=== PATIENT | male | born 1950 | race African-American/Black ===

== ENCOUNTER 2017-12-28 17:21 | Inpatient (IN) | payer MEDICARE ==
[2017-12-28 17:22] VITALS: BP 137/82; PULSE 86; RESP 17; TEMP 98.4; O2SAT 95
--- NOTE | 2017-12-28 18:43 | RADRPT ---
EXAM DATE/TIME: 12/28/2017 18:13 [place] COMPARISON: No previous studies available for comparison. INDICATIONS : Chest pain. Patients pacemaker went off. MEDICAL HISTORY : Hypertension. Diabetes mellitus type II. SURGICAL HISTORY : Pacemaker. Valve replacement. ENCOUNTER: Initial ACUITY: 3 weeks PAIN SCORE: 0/10 LOCATION: Bilateral chest FINDINGS: PA and lateral views of the chest demonstrate the lungs to be symmetrically aerated without evidence of mass, infiltrate or effusion. The heart size is diffusely enlarged. There is evidence of previous cardiothoracic surgery. There is a pacemaker overlying the left chest. The bony structures are gross ly intact. CONCLUSION: No acute disease. Compensated cardiomegaly Panchito Henderson MD on December 28, 2017 at 18:41 Board Certified Radiologist. This report was verified electronically.
[2017-12-28 19:04] LABS: AUTOMATED NEUTROPHIL # 4.8 TH/MM3 (1.8-7.7); BASOPHIL % 0.6 % (0.0-2.0); EOSINOPHIL # 0.1 TH/MM3 (0-0.4); EOSINOPHIL % 0.9 % (0.0-4.0); HEMATOCRIT 45.2 % (39.0-51.0); HEMOGLOBIN 15.7 GM/DL (13.0-17.0); LYMPH % 19.5 % (9.0-44.0); LYMPHOCYTE # 1.4 TH/MM3 (1.0-4.8); MEAN CELL VOLUME 95.9 FL (80.0-100.0); MEAN CORPUSCULAR HEMOGLOBIN 33.2 PG (27.0-34.0); MEAN CORPUSCULAR HGB CONC 34.7 % (32.0-36.0); MEAN PLATELET VOLUME 9.2 FL (7.0-11.0); MONO % 12.6 % (0.0-8.0); MONOCYTE # 0.9 TH/MM3 (0-0.9); NEUT % 66.4 % (16.0-70.0); PLATELET COUNT 152 TH/MM3 (150-450); RED BLOOD COUNT 4.72 MIL/MM3 (4.50-5.90); RED CELL DISTRIBUTION WIDTH 14.8 % (11.6-17.2); WHITE BLOOD COUNT 7.2 TH/MM3 (4.0-11.0)
[2017-12-28 19:10] VITALS: BP 125/83; PULSE 105; RESP 18; O2SAT 99
--- NOTE | 2017-12-28 19:12 | PD ---
HPI Chief Complaint: Commercial Census Taker Problem Time Seen by Provider: 19:09 Travel History International Travel<30 days: No Contact w/Intl Traveler<30days: No Traveled to known affect area: No History of Present Illness HPI The patient is a 67 year old male who presents to the [facility] emergency department with a history of reportedly having his AICD fire earlier today. The patient reports that he was out playing golf and had just done a great shot on the golf course. The patient reports that it was at approximately 3 PM that the AICD fired. He reports that he felt like he was kicked in the chest. He denies having any chest pain, chest pressure, palpitations prior to this. He denies having any shortness of breath. He denies having any chest pain or chest pressure currently. He denies having any shortness of breath currently. The patient's recent history is complicated by being diagnosed with bronchitis. He is on the last 3 days of a course of Augmentin. The patient reports that his cough and congestion have greatly improved on the antibiotic. He reports that his primary care physician is Dr. Atwood in [place]. On review of systems, the patient denies having any known recent fevers, neck pain, chest pain, shortness of breath, abdominal pain, vomiting, diarrhea, urinary symptoms , or neurologic symptoms. The patient reports that he has been moving his bowels regularly. [facility] Past Medical History Narrative Medical The patient's past medical history is significant for having a mitral valve replacement done in 1993 with an artificial valve, chronically anticoagulated on Coumadin, history of atrial fibrillation status post AICD placement 8 years ago. The patient reports that he was recently told that his battery was getting low and would have to be replaced when the alarm goes off. The patient has a history of diabetes. The patient's recent blood sugars have been ranging from 110-150. Patient has a history of hypertension. The patient's last stress test was done approximately 2 years ago. Cardiovascular Problems: Yes Diabetes: Yes Past Surgical History Narrative Surgical The patient's past surgical history is significant for AICD placement, mitral valve replacement. Social History Alcohol Use: No Tobacco Use: No Substance Use: No Allergies-Medications (Allergen,Severity, Reaction): Coded Allergies: amiodarone (Verified Allergy, Unknown, 12/28/17) Reported Meds & Prescriptions Reported Meds & Active Scripts Active Reported Augmentin (Amoxicillin-Clavulanate) 875-125 Mg Tab 1 Tab PO BID Furosemide 40 Mg Tab 40 Mg PO BID Warfarin 7.5 Mg Tab 7.5 Mg PO DAILY Tradjenta (Linagliptin) 5 Mg Tab 5 Mg PO DAILY Metoprolol Succinate ER 24 HR (Metoprolol Succinate) 50 Mg Tab 50 Mg PO DAILY Digitek (Digoxin) 125 Mcg Tab 0.125 Mg PO DAILY Allopurinol 100 Mg Tab 100 Mg PO DAILY Review of Systems Except as stated in HPI: all other systems reviewed are Neg General / Constitutional: No: Fever Eyes: No: Visual changes HENT: Positive: Congestion, No: Headaches Cardiovascular: No: Chest Pain or Discomfort, Dyspnea on exertion Respiratory: Positive: Cough, No: Shortness of Breath Gastrointestinal: No: Nausea, Vomiting, Diarrhea, Abdominal Pain Genitourinary: No: Dysuria Musculoskeletal: No: Pain Skin: No Rash Neurologic: No: Weakness, Focal Abnormalities, Change in Mentation, Slurred Speech, Sensory Disturbance Psychiatric: No: Depression Endocrine: No: Polydipsia Hematologic/Lymphatic: No: Easy Bruising Physical Exam Narrative General: The patient is a well-developed well-nourished male in no acute distress. Head and Neck exam: Head is normocephalic atraumatic. Eyes: EOMI, pupils are equal round and reactive to light. Nose: Midline septum with pink mucous membranes Mouth: Dentition unremarkable. Moist mucus membranes. Posterior oropharynx is not erythematous. No tonsillar hypertrophy. Uvula midline. Airway patent. Neck: No palpable lymphadenopathy. No nuchal rigidity. No thyromegaly. Cardiovascular: Irregularly irregular with a rate that ranges from the 90s to low 100s. The patient on the monitor is noted to be in atrial fibrillation. The patient has an intermittent pulse deficit to his extremity palpated during simultaneous auscultation of his heart. The patient has an audible click consistent with his mechanical valve. No gallops or rubs. Lungs: Clear to auscultation bilaterally. No wheezes, rhonchi, or rales. Abdomen: Soft, without tenderness to palpation in all 4 quadrants of the abdomen. No guarding, rebound, or rigidity. Normal bowel sounds are audible. No tenderness on palpation of McBurney's point. Extremities: No clubbing, cyanosis, or edema. 2+ pulses in all 4 extremities. No calf tenderness on palpation. Back: No spinous process tenderness to palpation. No costovertebral angle tenderness to palpation. Neurologic Exam: Grossly nonfocal. Skin Exam: No rash noted. Intact skin that is warm and dry. Data Data Last Documented VS Vital Signs Date Time Temp Pulse Resp B/P (MAP) Pulse Ox O2 Delivery O2 Flow Rate FiO2 12/28/17 19:10 105 18 125/83 (97) 99 12/28/17 17:22 98.4 Orders Orders Electrocardiogram (12/28/17 17:46) Basic Metabolic Panel (Bmp) (12/28/17 17:46) Ckmb (Isoenzyme) Profile (12/28/17 17:46) Complete Blood Count With Diff (12/28/17 17:46) Magnesium (Mg) (12/28/17 17:46) Prothrombin Time / Inr (Pt) (12/28/17 17:46) Act Partial Throm Time (Ptt) (12/28/17 17:46) Troponin I (12/28/17 17:46) Chest, Pa & Lat (12/28/17 17:46) CKMB (12/28/17 18:35) CKMB% (12/28/17 18:35) Digoxin (12/28/17 19:28) Aspirin Chew (Aspirin Chew) (12/28/17 19:30) Nitroglycerin 2% Oint (Nitroglycerin 2% (12/28/17 19:30) Diltiazem Inj (Cardizem Inj) (12/28/17 19:30) Admit Order (Ed Use Only) (12/28/17 21:16) Consult Cardiology (12/28/17 ) Labs Laboratory Tests Test 12/28/17 17:45 12/28/17 18:35 Digoxin Level 0.9 NG/ML White Blood Count 7.2 TH/MM3 Red Blood Count 4.72 MIL/MM3 Hemoglobin 15.7 GM/DL Hematocrit 45.2 % Mean Corpuscular Volume 95.9 FL Mean Corpuscular Hemoglobin 33.2 PG Mean Corpuscular Hemoglobin Concent 34.7 % Red Cell Distribution Width 14.8 % Platelet Count 152 TH/MM3 Mean Platelet Volume 9.2 FL Neutrophils (%) (Auto) 66.4 % Lymphocytes (%) (Auto) 19.5 % Monocytes (%) (Auto) 12.6 % Eosinophils (%) (Auto) 0.9 % Basophils (%) (Auto) 0.6 % Neutrophils # (Auto) 4.8 TH/MM3 Lymphocytes # (Auto) 1.4 TH/MM3 Monocytes # (Auto) 0.9 TH/MM3 Eosinophils # (Auto) 0.1 TH/MM3 Basophils # (Auto) 0.0 TH/MM3 CBC Comment DIFF FINAL Differential Comment Prothrombin Time 28.9 SEC Prothromb Time International Ratio 2.9 RATIO Activated Partial Thromboplast Time 36.9 SEC Blood Urea Nitrogen 25 MG/DL Creatinine 1.91 MG/DL Random Glucose 121 MG/DL Calcium Level 9.9 MG/DL Magnesium Level 2.1 MG/DL Sodium Level 137 MEQ/L Potassium Level 4.3 MEQ/L Chloride Level 104 MEQ/L Carbon Dioxide Level 24.1 MEQ/L Anion Gap 9 MEQ/L Estimat Glomerular Filtration Rate 35 ML/MIN Total Creatine Kinase 153 U/L Creatine Kinase MB 2.6 NG/ML Troponin I LESS THAN 0.02 NG/ML MDM Medical Decision Making Medical Screen Exam Complete: Yes Emergency Medical Condition: Yes Medical Record Reviewed: Yes Interpretation(s) Last Impressions Chest X-Ray 12/28/17 [id number] Signed Impressions: Service Date/Time: Thursday, December 28, 2017 18:13 - CONCLUSION: No acute disease. Compensated cardiomegaly Panchito Henderosn MD Differential Diagnosis Electrolyte derangements, versus A. fib with RVR causing AICD fire, versus other cardiac arrhythmia, versus acute coronary syndrome triggering cardiac Narrative Course During the course of the patient's emergency department visit, the patient's history, examination, and differential diagnosis were reviewed with the patient. The patient was placed on a school lunch monitor with oximetry and frequent blood pressure monitoring. The patient had IV access obtained and blood work sent for analysis. The patient had an EKG done on arrival that shows A. fib with RVR heart rate of 100, QRS duration is 122 ms with a QTC of 394 ms, moderate intraventricular conduction delay, marked left axis deviation. T waves are inverted in V5, V6, lead I, aVL. No acute ST segment elevation. The patient's pacemaker/AICD will be interrogated. The patient was initially provided aspirin 81 mg p.o. 1, nitroglycerin 1/2 inch of paste to the chest wall. If the patient's heart rhythm is maintained above 100 the patient will be given a dose of Cardizem IV. The patient was administered Cardizem 10 mg IV. The patient's laboratory studies were reviewed and remarkable for a white count of 7.2, hemoglobin 15.7, platelets 152 with monocytes 12.6, basic metabolic profile is remarkable for a BUN of 25, creatinine 1.91 in a patient with no prior records at this facility, therefore it is difficult to assess that this is better or worse than previously, glucose 121, magnesium is 2.1, CPK 153, troponin I less than 0.02, PT 28.9, INR 2.9, PTT 36.9, digoxin level is 0.9 Radiology studies were reviewed and remarkable for chest x-ray that shows no acute disease, compensated cardiomegaly. The pacemaker interrogator reported that the patient had an episode of V. tach that required AICD defibrillation. The defibrillator function well, however the battery is low. I did discuss this with Dr. David Robbins the covering physician for the patient's straw baler, Dr. Rene. On reviewing the patient's record he reports that the patient's battery threshold is low enough that he does need to have the battery replaced. He recommends admission and consultation with , for placement. The patient's results were discussed with the patient, including the plan of care. I explained that further testing and/ or monitoring is indicated based on the patient's history, examination, and/ or laboratory findings. Therefore, I recommended admission for additional evaluation. The patient expressed understanding and was agreeable with this plan. The patient was admitted to the hospital in guarded condition and [facility] Physician Communication Physician Communication The patient's case including history, pertinent physical examination findings, and laboratory studies were discussed with Dr. Renteria. It was agreed that the patient would be admitted to the [facility] service. Diagnosis Primary Impression: Defibrillator discharge Additional Impressions: Renal insufficiency Ventricular tachycardia Admitting Information Admitting Physician Requests: Admit Lucinda Robbins MD Dec 28, 2017 19:12
[2017-12-28 19:14] LABS: BICARBONATE 24.1 MEQ/L (21.0-32.0); BLOOD UREA NITROGEN 25 MG/DL (7-18); CALCIUM 9.9 MG/DL (8.5-10.1); CHLORIDE 104 MEQ/L (98-107); CREATININE 1.91 MG/DL (0.60-1.30); GLOMERULAR FILTRATION RATE 35 ML/MIN (>89); GLUCOSE,RANDOM 121 MG/DL (74-106); MAGNESIUM 2.1 MG/DL (1.5-2.5); SODIUM (NA) 137 MEQ/L (136-145)
[2017-12-28 19:16] LABS: INTERNATIONAL NORMALIZED RATIO 2.9 RATIO; PROTHROMBIN TIME - PATIENT 28.9 SEC (9.8-11.6)
[2017-12-28 19:18] LABS: TROPONIN I LESS THAN 0.02 NG/ML (0.02-0.05)
[2017-12-28] MEDS ORDERED: ALLO100T PO (19:18)
[2017-12-28] MEDS ORDERED: METO1TAB9 PO (19:20)
[2017-12-28] MEDS ORDERED: DIGO1TAB59 PO (19:20)
[2017-12-28] MEDS ORDERED: FURO40TA PO (19:20)
[2017-12-28] MEDS ORDERED: TRAD5TAB PO (19:20)
[2017-12-28] MEDS ORDERED: WARF-21 PO (19:20)
[2017-12-28] MEDS ORDERED: AUGM875T3 PO (19:24)
[2017-12-28] MEDS ORDERED: NITROGLYCERIN 2% OINT 1 GM PACKET TOPICAL ONE (19:30)
[2017-12-28] MEDS ORDERED: DILTIAZEM HCL 25 MG/5 ML VIAL IV ONE (19:30)
[2017-12-28] MEDS ORDERED: ASPIRIN 81 MG CHEW TAB CHEW ONE (19:30)
[2017-12-28 22:01] VITALS: BP 141/97; PULSE 85; RESP 18; O2SAT 98
[2017-12-28] MEDS ORDERED: GLUCAGON 1 MG/ML VIAL OTHER PRN (22:15)
[2017-12-28] MEDS ORDERED: NALOXONE HCL 0.4 MG/ML AMP IV PUSH PRN (22:15)
[2017-12-28] MEDS ORDERED: DEXTROSE 50% IN WATER 50 ML VIAL(D50) IV PUSH PRN (22:15)
[2017-12-28 23:00] VITALS: BP 127/75; PULSE 88; RESP 18; TEMP 98.3; O2SAT 97
[2017-12-29] VITALS (7 sets, daily range): BP systolic 117–142; BP diastolic 72–88; PULSE 70–88; RESP 16; TEMP 97.8–98; O2SAT 96–98
[2017-12-29] MEDS ORDERED: DEXTROSE 50% IN WATER 50 ML VIAL(D50) IV PUSH PRN
[2017-12-29] MEDS ORDERED: TEMAZEPAM 15 MG CAP PO PRN
[2017-12-29] MEDS ORDERED: GLUCAGON 1 MG/ML VIAL OTHER PRN
--- NOTE | 2017-12-29 00:14 | HHI.HP ---
[facility] Primary Care Physician Sunitha Moore MD Admission Diagnosis Vtach s/p AICD fire, low battery on defibrillator Diagnoses: Travel History International Travel<30 Days: No Contact w/Intl Traveler <30 Da: No Traveled to Known Affected Are: No History of Present Illness 67-year-old male with a past medical history significant for atrial fibrillation anticoagulated on Coumadin, diabetes mellitus, hypertension, gout and status post mitral valve replacement presents to the emergency department after his AICD fired. The patient reports he was playing golf when his pacemaker shocked him. He denies any associated chest pain or shortness of breath. Denies any palpitations preceding the event. This pacemaker was interrogated in the emergency department was significant for V. tach that preceded the shock. Patient denies any associated loss of consciousness. The patient's field marketing coordinator is Dr. Rene. He was last seen last month where he was told that his AICD had a low battery. Review of Systems Except as stated in HPI: all other systems reviewed are Neg Past Family Social History Past Medical History Diabetes mellitus Hypertension Gout Atrial fibrillation anticoagulated on warfarin Past Surgical History AICD placement in 2005 Mitral valve replacement in 1993 Reported Medications Reported Meds & Active Scripts Active Reported Augmentin (Amoxicillin-Clavulanate) 875-125 Mg Tab 1 Tab PO BID Furosemide 40 Mg Tab 40 Mg PO BID Warfarin 7.5 Mg Tab 7.5 Mg PO DAILY Tradjenta (Linagliptin) 5 Mg Tab 5 Mg PO DAILY Metoprolol Succinate ER 24 HR (Metoprolol Succinate) 50 Mg Tab 50 Mg PO DAILY Digitek (Digoxin) 125 Mcg Tab 0.125 Mg PO DAILY Allopurinol 100 Mg Tab 100 Mg PO DAILY Allergies: Coded Allergies: amiodarone (Verified Allergy, Unknown, 12/28/17) Family History Both parents with diabetes mellitus Social History Denies tobacco. Occasional alcohol. Denies illicit drugs. Physical Exam Vital Signs Vital Signs Date Time Temp Pulse Resp B/P (MAP) Pulse Ox O2 Delivery O2 Flow Rate FiO2 12/28/17 23:07 12/28/17 22:01 85 18 141/97 (112) 98 Room Air 12/28/17 19:10 105 18 125/83 (97) 99 12/28/17 19:10 100 12/28/17 17:22 98.4 86 17 137/82 (100) 95 Physical Exam GENERAL: Saima male, sitting up in bed, eating SKIN: No rashes, ecchymoses or lesions. Cool and dry. HEAD: Atraumatic. Normocephalic. No temporal or scalp tenderness. EYES: Pupils equal round and reactive. Extraocular motions intact. No scleral icterus. No injection or drainage. ENT: Nose without bleeding, purulent drainage or septal hematoma. Throat without erythema, tonsillar hypertrophy or exudate. Uvula midline. Airway patent. NECK: Trachea midline. No JVD or lymphadenopathy. Supple, nontender, no meningeal signs. CARDIOVASCULAR: Regular rate and rhythm. 3/6 murmur. RESPIRATORY: Clear to auscultation. Breath sounds equal bilaterally. No wheezes , rales, or rhonchi. GASTROINTESTINAL: Abdomen soft, non-tender, nondistended. No hepato-splenomegaly , or palpable masses. No guarding. MUSCULOSKELETAL: Extremities without clubbing, cyanosis, or edema. No joint tenderness, effusion, or edema noted. No calf tenderness. NEUROLOGICAL: Awake and alert. Cranial nerves II through XII intact. Motor and sensory grossly within normal limits. Normal speech. Laboratory Laboratory Tests Test 12/28/17 17:45 12/28/17 18:35 Digoxin Level 0.9 White Blood Count 7.2 Red Blood Count 4.72 Hemoglobin 15.7 Hematocrit 45.2 Mean Corpuscular Volume 95.9 Mean Corpuscular Hemoglobin 33.2 Mean Corpuscular Hemoglobin Concent 34.7 Red Cell Distribution Width 14.8 Platelet Count 152 Mean Platelet Volume 9.2 Neutrophils (%) (Auto) 66.4 Lymphocytes (%) (Auto) 19.5 Monocytes (%) (Auto) 12.6 Eosinophils (%) (Auto) 0.9 Basophils (%) (Auto) 0.6 Neutrophils # (Auto) 4.8 Lymphocytes # (Auto) 1.4 Monocytes # (Auto) 0.9 Eosinophils # (Auto) 0.1 Basophils # (Auto) 0.0 CBC Comment DIFF FINAL Differential Comment Prothrombin Time 28.9 Prothromb Time International Ratio 2.9 Activated Partial Thromboplast Time 36.9 Blood Urea Nitrogen 25 Creatinine 1.91 Random Glucose 121 Calcium Level 9.9 Magnesium Level 2.1 Sodium Level 137 Potassium Level 4.3 Chloride Level 104 Carbon Dioxide Level 24.1 Anion Gap 9 Estimat Glomerular Filtration Rate 35 Total Creatine Kinase 153 Creatine Kinase MB 2.6 Troponin I LESS THAN 0.02 Result Diagram: 12/28/17183412/28/171834 Caprini VTE Risk Assessment Caprini VTE Risk Assessment: Mod/High Risk (score >= 2) Caprini Risk Assessment Model Point Value = 1 Point Value = 2 Point Value = 3 Point Value = 5 Age 41-60 Minor surgery BMI > 25 kg/m2 Swollen legs Varicose veins or History of unexplained or recurrent spontaneous Oral contraceptives or hormone replacement Sepsis (< 1 month) Serious lung disease, including pneumonia (< 1 month) Abnormal pulmonary function Acute myocardial infarction Congestive heart failure (< 1 month) History of inflammatory bowel disease Medical patient at bed rest Age 61-74 Arthroscopic surgery Major open surgery (> 45 min) Laparoscopic surgery (> 45 min) Malignancy Confined to bed (> 72 hours) Immobilizing plaster cast Central venous access Age >= 75 History of VTE Family history of VTE Factor V Leiden Prothrombin [id number] Lupus anticoagulant Anticardiolipin antibodies Elevated serum homocysteine Heparin-induced thrombocytopenia Other congenital or acquired thrombophilia Stroke (< 1 month) Elective arthroplasty Hip, pelvis, or leg fracture Acute spinal cord injury (< 1 month) Prophylaxis Regimen Total Risk Factor Score Risk Level Prophylaxis Regimen 0-1 Low Early ambulation 2 Moderate Order ONE of the following: *Sequential Compression Device (SCD) *Heparin 5000 units SQ BID 3-4 Higher Order ONE of the following medications: *Heparin 5000 units SQ TID *Enoxaparin/Lovenox 40 mg SQ daily (WT < 150 kg, CrCl > 30 mL/min) *Enoxaparin/Lovenox 30 mg SQ daily (WT < 150 kg, CrCl > 10-29 mL/min) *Enoxaparin/Lovenox 30 mg SQ BID (WT < 150 kg, CrCl > 30 mL/min) AND/OR *Sequential Compression Device (SCD) 5 or more Highest Order ONE of the following medications: *Heparin 5000 units SQ TID (Preferred with Epidurals) *Enoxaparin/Lovenox 40 mg SQ daily (WT < 150 kg, CrCl > 30 mL/min) *Enoxaparin/Lovenox 30 mg SQ daily (WT < 150 kg, CrCl > 10-29 mL/min) *Enoxaparin/Lovenox 30 mg SQ BID (WT < 150 kg, CrCl > 30 mL/min) AND *Sequential Compression Device (SCD) Assessment and Plan Assessment and Plan Assessment/plan: 1. Ventricular tachycardia/AICD discharge Status post pacemaker discharge for ventricular tachycardia AICD battery is low, patient has not had the battery replaced since it was placed on [address] Sharma for possible battery replacement 2. Atrial fibrillation Continue home medications Holding warfarin for possible intervention tomorrow INR 2.9 3. Diabetes mellitus Holding oral anti-hyperglycemics SSI Monitor blood glucose 4. Hypertension Continued home medications 5. Elevated creatinine BUN 25, creatinine 1.91 Gentle IV fluid hydration Likely chronic component with no recent labs for comparison Monitor renal function FEN NPO Electrolytes: Monitor and replete when necessary NS at 84 cc/hr Holding pharmacologic anticoagulation in anticipation of procedures were Physician Certification 2 Midnight Certification Type: Admission for Inpatient Services Order for Inpatient Services The services are ordered in accordance with Medicare regulations or non- Medicare payer requirements, as applicable. In the case of services not specified as inpatient-only, they are appropriately provided as inpatient services in accordance with the 2-midnight benchmark. Estimated LOS (days): 2 2 days is the estimated time the patient will need to remain in the hospital, assuming treatment plan goals are met and no additional complications. Post-Hospital Plan: Not yet determined Taty Renteria MD Dec 29, 2017 00:14
[2017-12-29] MEDS: SODIUM CHLOR 0.9% 1000 ML INJ 1,000 ML IV SCH ×2 (00:45→12:25)
[2017-12-29] MEDS ORDERED: POVIDONE IODINE 5% (ANTISEPSIS KIT) 4 APPLICATIONS TOPICAL SCH (08:00)
[2017-12-29] MEDS ORDERED: MUPIROCIN 2% OINT 1 APPLIC/GM SYR EACH NARE SCH (08:00)
[2017-12-29] MEDS ORDERED: CHLORHEXIDINE GLUCONATE 2 % 1 PACK (2 CLOTHS) TOPICAL SCH (08:00)
[2017-12-29] MEDS: METOPROLOL SUCCINATE 50 MG EXTENDED RELEASE TAB PO SCH ×2 (08:19→09:42)
[2017-12-29] MEDS: FUROSEMIDE 40 MG TAB PO SCH ×2 (08:19→09:42)
[2017-12-29] MEDS: DIGOXIN 0.125 MG TAB PO SCH ×2 (08:19→09:43)
[2017-12-29] MEDS: ALLOPURINOL 100 MG TAB PO SCH ×2 (08:19→09:42)
[2017-12-29 08:59] LABS: AUTOMATED NEUTROPHIL # 3.2 TH/MM3 (1.8-7.7); BASOPHIL # 0.1 TH/MM3 (0-0.2); BASOPHIL % 1.5 % (0.0-2.0); EOSINOPHIL # 0.2 TH/MM3 (0-0.4); EOSINOPHIL % 3.2 % (0.0-4.0); HEMATOCRIT 40.7 % (39.0-51.0); HEMOGLOBIN 13.9 GM/DL (13.0-17.0); LYMPH % 18.8 % (9.0-44.0); LYMPHOCYTE # 0.9 TH/MM3 (1.0-4.8); MEAN CELL VOLUME 96.7 FL (80.0-100.0); MEAN CORPUSCULAR HGB CONC 34.1 % (32.0-36.0); MEAN PLATELET VOLUME 9.7 FL (7.0-11.0); MONO % 11.4 % (0.0-8.0); MONOCYTE # 0.6 TH/MM3 (0-0.9); NEUT % 65.1 % (16.0-70.0); PLATELET COUNT 122 TH/MM3 (150-450); RED BLOOD COUNT 4.21 MIL/MM3 (4.50-5.90); RED CELL DISTRIBUTION WIDTH 14.8 % (11.6-17.2); WHITE BLOOD COUNT 4.9 TH/MM3 (4.0-11.0)
[2017-12-29] MEDS ORDERED: AMOXICILLIN/CLAVULANATE K 875 MG TAB PO SCH (09:00)
[2017-12-29 09:16] LABS: BICARBONATE 26.1 MEQ/L (21.0-32.0); CALCIUM 8.7 MG/DL (8.5-10.1); CREATININE 1.6 MG/DL (0.60-1.30)
--- NOTE | 2017-12-29 10:04 | MB ---
cc: SHI ESCALERA M.D. DATE OF CONSULTATION 12/29/2017 REASON FOR CONSULTATION AICD shock. HISTORY OF PRESENT ILLNESS The patient is a 67-year-old -[place] male, followed in our office by Dr. Stefano Rene, with a history of primarily nonischemic cardiomyopathy, history of AICD implant, coronary artery disease, diabetes, [place] mitral valve replacement, who presented to the emergency room after receiving an AICD shock while playing golf. He had no preceding dizziness, palpitations, chest pain. He did not lose consciousness. He denies any recent angina, shortness of breath, paroxysmal nocturnal dyspnea, pedal edema. PAST MEDICAL HISTORY 1. Primarily non-ischemic cardiomyopathy with ejection fraction of 30-35% by echo January 2017. 2. Status post Medtronic single-chamber AICD approximately 2009 in [place]. 3. Possible coronary artery disease with nuclear stress test 2014 showing moderate apical inferior and mid inferior ischemia, apical infarct with angelika-infarct ischemia. 4. Diabetes. 5. Gout. 6. [place] [place] mitral valve replacement 1993. 7. Hypertension. 8. Hyperlipidemia. 9. Paroxysmal ventricular tachycardia. 10.Chronic atrial fibrillation. MEDICATIONS Cardiac medications at home: 1. Digoxin 0.125 mg q. day. 2. Metoprolol succinate 50 mg q. day. 3. Warfarin 7.5 mg q. day. 4. Furosemide 40 mg b.i.d. ALLERGIES AMIODARONE. FAMILY HISTORY Noncontributory. SOCIAL HISTORY The patient is a former smoker. There is no history of alcohol abuse. REVIEW OF SYSTEMS As in the history of present illness, otherwise negative or noncontributory. He also denies headache, abdominal pain, melena, dyspepsia, bright red blood per rectum, fevers. PHYSICAL EXAMINATION VITAL SIGNS: On physical examination his blood pressure is 117/72 with a pulse of 70, respirations 16. GENERAL: In general he is a well-developed, well-nourished -[place] male in no acute distress HEENT/NECK: Jugular venous pressure is normal. Carotid pulses are 2+ bilaterally and without bruits. CHEST: Examination of the chest reveals clear lung cannon. CARDIAC: On cardiac examination he has an irregularly irregular rhythm without S3. Mitral valve replacement sounds are crisp. ABDOMEN: On abdominal examination he has a soft, nontender abdomen. Bowel sounds are present. There is no definite hepatosplenomegaly. EXTREMITIES: Examination of extremities reveals no clubbing, cyanosis or edema. EKG EKG shows atrial fibrillation, left anterior fascicular block, poor R-wave progression, nonspecific T-wave changes. LABORATORY Laboratory data includes potassium 4.3, BUN 25, creatinine 1.91, negative cardiac enzymes, magnesium 2.1, INR 2.9, normal CBC. IMAGING Chest x-ray shows no acute disease. IMPRESSION Single AICD shock for ventricular tachycardia in this 67-year-old -[place] male with a history of primarily nonischemic cardiomyopathy, ejection fraction 30-35%, history of Medtronic AICD implant, possible coronary artery disease, diabetes, [facility] [place] mitral valve replacement, chronic atrial fibrillation. The patient's cardiac status has otherwise been stable. AICD interrogation yesterday shows appropriate device function. The AICD battery is at elective replacement indicator status. There is still an approximately 90-day window to replace his battery. I discussed with the patient just having the AICD generator replacement today while he is in the hospital. He agrees to proceed. The nature of an AICD generator replacement and potential risks have been outlined to the patient. RECOMMENDATIONS AICD generator replacement today; he can be discharged home afterwards. MD ERIC Mohan/MELISSA /7:52 AM /9:48 AM ELOISA
--- NOTE | 2017-12-29 10:31 | HHI.PR ---
Subjective Remarks Follow-up AICD firing. Patient has no new complaints. Denies chest pain and shortness of breath. History of kidney dysfunction states not known to the patient his PCP is following it. Discussed with RN, obtain outside records for comparison of renal function Objective Vitals Vital Signs Date Time Temp Pulse Resp B/P (MAP) Pulse Ox O2 Delivery O2 Flow Rate FiO2 12/29/17 08:15 Room Air 12/29/17 08:00 71 12/29/17 04:04 74 12/29/17 04:00 98.0 70 16 117/72 (87) 98 12/29/17 00:54 Room Air 12/29/17 00:06 78 12/28/17 23:07 12/28/17 23:00 98.3 88 18 127/75 (92) 97 12/28/17 22:01 85 18 141/97 (112) 98 Room Air 12/28/17 19:10 105 18 125/83 (97) 99 12/28/17 19:10 100 12/28/17 17:22 98.4 86 17 137/82 (100) 95 Result Diagram: 12/29/17 0828 12/29/17 0828 Imaging Last Impressions Chest X-Ray 12/28/17 1746 Signed Impressions: Service Date/Time: Thursday, December 28, 2017 18:13 - CONCLUSION: No acute disease. Compensated cardiomegaly Panchito Henderson MD Objective Remarks GENERAL: Saima male, sitting up in bed, eating SKIN: No rashes, ecchymoses or lesions. Cool and dry. CARDIOVASCULAR: Irregularly irregular RESPIRATORY: Clear to auscultation. Breath sounds equal bilaterally. No wheezes , rales, or rhonchi. GASTROINTESTINAL: Abdomen soft, non-tender, nondistended. No guarding. MUSCULOSKELETAL: Extremities without clubbing, cyanosis, or edema. No joint tenderness, effusion, or edema noted. No calf tenderness. NEUROLOGICAL: Awake and alert. Cranial nerves II through XII intact. Motor and sensory grossly within normal limits. Normal speech. Procedures For AICD generator replacement A/P Problem List: (1) Defibrillator discharge ICD Code: Z45.02 - Encounter for adjustment and management of automatic implantable cardiac defibrillator Status: Acute Assessment and Plan 1. Ventricular tachycardia/AICD discharge Status post pacemaker discharge for ventricular tachycardia AICD battery is low, patient has not had the battery replaced since it was placed on 2005 Dr. Brown plans to perform AICD generator replacement today then discharge home 2. Atrial fibrillation Continue home medications Holding warfarin today. Restart if okay with cardiology 3. DM. Stable holding oral anti-hyperglycemics 2/2 NPO status SSI Monitor blood glucose 4. Hypertension Continued home medications 5. Elevated creatinine. Patient states he has kidney dysfunction stage not known. Outside records show crea 1.47, CKD stage 3 BUN 25, creatinine 1.91 Improving crea 1.6 continue Gentle IV fluid hydration Monitor renal function FEN NPO Electrolytes: Monitor and replete when necessary NS at 84 cc/hr Holding pharmacologic anticoagulation in anticipation of procedures were Discharge Planning Discharge patient to home Condition on discharge: Improved Regular Diet as tolerated Ad Dena activity no weightbearing left upper extremity Rx written: Cephalexin Follow-up with primary care physician and cardiology. Pt goes to [facility] has standing INR order followed by PCP advised to get INR in 2 days Julio C Muñoz MD Dec 29, 2017 10:31
--- NOTE | 2017-12-29 10:48 | HHI.DCPOC ---
Discharge Care Plan Diagnosis: (1) Defibrillator discharge Your Health Problems Are: Difficulty with ADL Exercise Tolerance Goals to Promote Your Health * To prevent worsening of your condition and complications * To maintain your health at the optimal level Directions to Meet Your Goals Take your medications as prescribed Follow your dietary instruction Follow activity as directed Keep your appointments as scheduled Take your immunizations and boosters as scheduled If your symptoms worsen call your PCP, if no PCP go to Urgent Care Center or Emergency Room Smoking is Dangerous to Your Health. Avoid second hand smoke Call the 24-hour hour crisis hotline for domestic abuse at Julio C Muñoz MD Dec 29, 2017 10:48
[2017-12-29] MEDS: INSULIN ASPART SUPPLEMENTAL SCALE SQ SCH ×2 (12:00→17:00)
[2017-12-29] MEDS ORDERED: ceFAZolin INJ 1,000 MG in SODIUM CHLORIDE 0.9% INJ 250 ML IV SCH (13:30)
[2017-12-29] MEDS ORDERED: VANCOMYCIN INJ 1,000 MG in SODIUM CHLOR 0.9% 250 ML INJ 250 ML IV SCH (13:30)
--- NOTE | 2017-12-29 14:38 | EKG ---
Date Performed: 12/28/2017 Time Performed: 18:28:10 PTAGE: 67 years EKG: ATRIAL FIBRILLATION WITH RAPID VENTRICULAR RESPONSE MARKED LEFT AXIS DEVIATION MODERATE INT RAVENTRICULAR CONDUCTION DELAY ST DEVIATION AND MODERATE T-WAVE ABNORMALITY, CONSIDER LATERAL ISCHEMI A ABNORMAL ECG NO PREVIOUS TRACING DOCTOR: Jesus Valenzuela Interpretating Date/Time 12/29/2017 14:31:20
[2017-12-29] MEDS ORDERED: LIDOCAINE HCL 2% 50 ML VIAL ONE (14:41)
[2017-12-29] MEDS: ceFAZolin INJ 1,000 MG VIAL ONE ×2 (14:41→14:56)
[2017-12-29] MEDS: VANCOMYCIN HCL 1000 MG VIAL ONE ×2 (14:41→14:52)
[2017-12-29] MEDS ORDERED: MIDAZOLAM HCL 5 MG/5 ML VIAL ONE (14:53)
[2017-12-29] MEDS ORDERED: CEPH500T PO (15:29)
[2017-12-29] MEDS ORDERED: ACETAMINOPHEN 325 MG TAB PO PRN (15:30)
--- NOTE | 2017-12-29 15:38 | CATHPROC ---
[facility] HIS Report Study Information Study Number Admission Scheduled Start Study Start [id number] Dec 28 2017 10:16PM 12/29/2017 Dec 29 2017 2:31PM [facility] Service Cardiac Pacer/ICD Admit Source Facility Department Other [facility] - Proposal Review Analyst Physician and Clinical Staff Initial Santos Coronado Cra Yessy Carrillo,RN Recorder Katya Fall,RT(R) Scrub Randal, Nelda,MAT PUNCHER TECH2 Equipment Time Senior Unix Administrator Description Size Mfg Part Number Used/Scraped 15:03 Needle Sponge Count 2 2 Used 15:03 Needle Sponge Count 2 22 Used 15:03 Needle Sponge Count 25 1 Used 15:07 VITATRON [employer] DEFIBRILLATOR, VISIA AF MRI VR VVEVVIR [id number] Used Equipment Model, Serial, Lot Number and Expiration Data Description Model Number Serial Number Lot Number Expiration Date DEFIBRILLATOR, VISIA AF MRI VR [id number] 06-19-2018 Medication Medication Total Dose (Bolus/Oral) Medication Total Dosage/Unit 2% XYLOCAINE 50 mL FENTANYL 50 mcg VERSED 3 mg Medications (Bolus/Oral) Medication Time Given Dosage/Unit Administered By Reason VERSED 12/29/2017 3:05:31 PM 2 mg Yessy Carrillo 2 mg VERSED given in lab by Yessy Carrillo RN via Peripheral IV. Ordered by Santos Deluca. 2% XYLOCAINE 12/29/2017 3:05:59 PM 50 mL Yessy Carrillo 50 mL 2% XYLOCAINE given in lab by Yessy Carrillo, DONNA in Left shoulder via Subcutaneous. Ordered by Santos Deluca. FENTANYL 12/29/2017 3:06:43 PM 50 mcg Yessy Carrillo 50 mcg FENTANYL given in lab by Yessy Carrillo, DONNA via Peripheral IV. Ordered by Santos Deluca. VERSED 12/29/2017 3:19:23 PM 1 mg Yessy Carrillo 1 mg VERSED given in lab by Yessy Carrillo RN via Peripheral IV. Ordered by Santos Deluca. Medication (Drip) Medication Time Given Dosage/Unit Concentration/Unit Diluent (ml) Solution ANCEF 12/29/2017 2:56:40 PM 2 g 2 g ANCEF given in lab by Yessy Carrillo, DONNA via Peripheral IV. Ordered by Santos Deluca. Reason: As per physicians verbal order. VANCOMYCIN DRIP 12/29/2017 2:52:20 PM 1 g 1 g VANCOMYCIN DRIP given in lab by Yessy Carrillo, DONNA via Peripheral IV. Ordered by Santos Deluca. Chronological Log Time Study Chronological Log 14:18:33 Patient arrived via Bed. 14:18:35 Patient Name, D.O.B, / Armband Verified By R.N. 14:18:36 Consent signed by the physician and the patient and verified by the Proposal Review Analyst staff. 14:18:40 Presedation assessment performed by Proposal Review Analyst RN. 14:18:45 Patient has been NPO for More than 6Hrs. 14:18:56 History and physical on the chart or being dictated. 14:19:32 2% CHLORHEXIDINE GLUCONATE WASH AND NASAL SWIPE DONE PRIOR TO PROCEDURE. 14:19:37 Pre-op and post- op instructions given; patient acknowledges understanding of instructions . 14:19:38 Verbal Stimulation=2 Physical Stimulation=2 Airway=2 Respiration=2 TOTAL=8. (0=absent, 1=l imited, 2=present) 14:19:46 Skin Breakdown- none per pt 14:19:48 Patient Warmer Placed on the Table. 14:20:49 Disposable Defibrillator Pads Placed On Patient. 14:20:50 Jag Prominences Protected 14:20:53 A # 20 IV was noted in the Forearm (left). Grade = 0 0.9% NaCl @ KVO 14:20:55 A # 20 IV was noted in the Antecubital (right). Grade = 0 0.9% NaCl @ KVO 14:21:54 Table restraints applied according to hospital policy 14:40:09 Left Upper Chest Prepped Times Two. 14:52:20 1 g VANCOMYCIN DRIP given in lab by Yessy Carrillo, RN via Peripheral IV. Ordered by Santos Méndez. 2 g ANCEF given in lab by Yessy Carrillo, RN via Peripheral IV. Ordered by Santos Deluca. Reas on: As per physicians 14:56:40 verbal order. Vitals capture started with the following parameters, Patient=Adult, Interval=5 min, Initial Pr tyyeui=737 mmHg, 14:57:34 Deflation Rate=5 mmHg, Cuff placed on Right Arm 14:58:12 ZV=505 bpm, AWFZ=689/94 mmhg, Laz=10 Bovie ground pad applied to: right thigh 15:01:45 First Sponge And Instrument Count Done by Yessy Carrillo RN. 15:02:09 Hypo's: 2, Sponges: 25, Bovie/scratch: 2 Sutures: 3, Blades: 2, Instruments: 26, Syveck Patches: 0 15:03:03 Reference ECG taken 15:03:11 HR=85 bpm, DDAI=751/109 mmhg, Pain=0, Laz=10, Tomas=2 Time Out. Correct patient, procedure, procedure equipment, site and side verified with physicia n present. Time 15:05:02 concurred by MD, individual staff and BOWLING OR SKATING FRONT DESK CLERK. Time Out #2 - Consents verified, patient in correct position, all results are labled and displa yed, safety precautions 15:05:04 taken, antibiotics administered. Time out concurred by MD, individual staff and BOWLING OR SKATING FRONT DESK CLERK in procedu re 15:05:07 Case Start 15:05:31 2 mg VERSED given in lab by Yessy Carrillo RN via Peripheral IV. Ordered by Santos Deluca. 15:05:59 50 mL 2% XYLOCAINE given in lab by Yessy Carrillo RN in Left shoulder via Subcutaneous. O rdered by Santos Deluca. 15:06:43 50 mcg FENTANYL given in lab by Yessy Carrillo RN via Peripheral IV. Ordered by Indra Deluca enn. 15:08:03 Surgical Incision Made. 15:08:08 HR=43 bpm, CMKC=155/93 mmhg, SpO2=99.0 %, Pain=0, Laz=10, Tomas=2 15:09:02 A pocket was opened at the Lt. upper chest. 15:11:59 A device was explanted. 15:12:41 A DEFIBRILLATOR, VISIA AF MRI VR VVEVVIR was connected and placed in the pocket. 15:13:09 HR=74 bpm, GXQZ=838/89 mmhg, SpO2=92.0 %, Pain=0, Laz=10, Tomas=2 holly powder placed in pocket by dr deluca 15:17:14 15:17:47 Implant Procedure was performed. 15:17:54 A ICD Implant . (Single) 15:18:45 DZ=065 bpm, GFYE=295/88 mmhg, SpO2=95.0 %, Pain=0, Laz=10, Tomas=2 15:19:23 1 mg VERSED given in lab by Yessy Carrillo, DONNA via Peripheral IV. Ordered by Santos Deluca. 15:21:41 The pocket was closed. 15:23:09 HR=92 bpm, DUEU=426/78 mmhg, SpO2=97.0 %, Pain=0, Laz=10, Tomas=2 15:23:46 Case End 15:27:45 Steri-strips and a sterile dressing applied to site. 15:28:53 HR=85 bpm, UFXH=035/58 mmhg, SpO2=97.0 %, Pain=0, Laz=10, Tomas=2 The Final Sponge And Instrument Count Done by Santos Deluca. 15:30:26 Hypo's: 2, Sponges: 25, Bovie/scratch: 2 Sutures: 4, Blades: 2, Instruments: 26, Syveck Patches: 0 15:32:49 pt sent to DOCU for recovery then to pts room 15:33:12 HR=98 bpm, ZGMD=277/89 mmhg, SpO2=96.0 %, Pain=0, Laz=10, Tomas=2 End Study - Contrast Media Used In Study Contrast Total Opened (mL) Total Used (mL) Total Wasted (mL) Unspecified 0 0 0 End Study - Radiation Exposure Fluoro Time (minutes) 0.1 End Study - Patient Disposition Complications Transferred To No Outpatient Bed
--- NOTE | 2017-12-29 22:30 | MP ---
cc: MILLI BRADEN GLEN DATE OF SURGERY: 12/29/2017 PROCEDURE AICD generator replacement. INDICATIONS AICD battery at elective replacement indicator status OPERATIVE NOTE The patient was brought to the operating suite in a fasting state after having signed informed consent. The left upper chest was prepped and draped as per policy and anesthetized with 1% lidocaine. A transverse incision was made over the preexisting generator using a plasma blade and using blunt dissection the generator was freed from the subcutaneous pocket. The leads were disconnected and then reconnected to the new generator which is a Medtronic Visia device. The leads and the generator were placed back into the subcutaneous pocket which is closed using 3-0 Vicryl interrupted stitches in two layers to close the subcutaneous tissue and then 4-0 Monocryl running stitch to close the subcuticular tissue. Overlapping Steri-Strips and a pressure dressing were applied. There were no apparent immediate complications. CONCLUSION Successful AICD generator replacement using a Medtronic Visia AICD generator. MD ERIC Mohan/KELVIN /3:20 PM /10:18 PM ELOISA
== END 2017-12-29 19:04 | disposition home or self-care (01) | DRG 245 ==
LOC: NEPE 17:21 → NEDA 21:19 → OBSVTOIN 22:16 → N04A 23:31
PROVIDERS: ADMIT Internal Medicine; ATTEND Internal Medicine
PROC: 4B02XTZ Measurement of Cardiac Defibrillator, External Approach (ICD-10-PCS; 2017-12-28)
PROC: 0JPT0PZ Removal of Cardiac Rhythm Related Device from Trunk Subcutaneous Tissue and Fascia, Open Approach (ICD-10-PCS; 2017-12-29)
PROC: 0JH608Z Insertion of Defibrillator Generator into Chest Subcutaneous Tissue and Fascia, Open Approach (ICD-10-PCS; principal; 2017-12-29 16:15)
DX: I47.2 Ventricular tachycardia (principal); I42.9 Cardiomyopathy, unspecified; T82.191A Other mechanical complication of cardiac pulse generator (battery), initial encounter; E11.22 Type 2 diabetes mellitus with diabetic chronic kidney disease; I48.2 Chronic atrial fibrillation; M10.9 Gout, unspecified; J40 Bronchitis, not specified as acute or chronic; I25.10 Atherosclerotic heart disease of native coronary artery without angina pectoris; E78.5 Hyperlipidemia, unspecified; I12.9 Hypertensive chronic kidney disease with stage 1 through stage 4 chronic kidney disease, or unspecified chronic kidney disease; N18.3 Chronic kidney disease, stage 3 (moderate); Z79.01 Long term (current) use of anticoagulants; Z95.2 Presence of prosthetic heart valve; Z79.84 Long term (current) use of oral hypoglycemic drugs; Z87.891 Personal history of nicotine dependence; Y71.8 Miscellaneous cardiovascular devices associated with adverse incidents, not elsewhere classified
CPT/HCPCS: 33262; 71046; 80048; 80162; 82550; 82552; 82810; 82948; 83735; 84484; 85025; 85610; 85730; 93005; 96374; 99152; C1722; J0690; J2250; J3010; J3370; J7030; J7050